=== PATIENT | female | born 2005 | race Two or more races ===

== ENCOUNTER 2025-02-09 09:57 | Emergency (ER) | payer SELFPAY ==
[2025-02-09 09:58] VITALS: BMI 21.4
[2025-02-09 10:03] VITALS: BP 155/86; PULSE 68; RESP 20; TEMP 36.6; O2SAT 100
--- NOTE | 2025-02-09 10:04 | XR_ITS ---
Examination: Abdomen sonogram, Limited Date and time of exam: February 09, 2025 1015 hrs. Indications: Epigastric pain nausea vomiting beginning 2 days ago. Technique: Real-time nina scale transabdominal sonographic images of the upper abdomen obtained. Findings: Normal gallbladder. Normal common bile duct 0.4 cm Pancreatic head 3.0 cm Liver 13.9 cm no focal liver lesions. Normal hepatopedal portal venous flow. Patent IVC. Impression: Normal study
--- NOTE | 2025-02-09 10:04 | EKG_ITS ---
[facility] Test Date: 2025-02-09 Pat Name: TERRI PHILLIPS Department: Room: - Gender: Female Casework Specialist: : 2005 Requested By: Drew Bautista (MADIE) Order Number: [id number] Reading MD: Drew Bautista (HOUSEFELLOW) Measurements Intervals [place] Rate: 65 P: 37 NC: 144 QRS: 64 QRSD: 85 T: 43 QT: 376 QTc: 391 Interpretive Statements SINUS RHYTHM NONSPECIFIC ST ELEVATION [0.05+ mV ST ELEVATION] No previous ECG available for comparison /store/S0/[id number]
[2025-02-09] MEDS: ONDANSETRON ODT 4 MG TABRAP PO (10:10)
[2025-02-09] MEDS: MG HYD/AL HYD/SIME (Maalox Reg) SUSP 30 ML UDC PO (10:11)
[2025-02-09] MEDS: FAMOTIDINE 20 MG TABLET PO (10:12)
[2025-02-09] MEDS: LIDOCAINE VISCOUS 2% 15 ML UDC PO (10:12)
[2025-02-09] MEDS: METOCLOPRAMIDE INJ 5 MG/ML VIAL 2 ML 10 MG IM (10:54)
[2025-02-09 11:16] LABS: Basophils # (Auto) 0.0 Thou/mm3 (0.0-0.2); Basophils % (Auto) 0 % (0-2.5); Eosinophils # (Auto) 0.1 Thou/mm3 (0.0-0.5); Eosinophils % (Auto) 1 % (0-10); Hematocrit 38.4 % (36.0-46.0); Hemoglobin 11.9 g/dL (12.0-16.0); Immature Granulocytes Auto 0.03 Thou/mm3 (0.00-0.00); Lymphocytes # (Auto) 1.5 Thou/mm3 (1.0-5.0); Lymphocytes % (Auto) 13 % (10-50); Mean Corpuscular HGB Conc 31.0 g/dl (31.0-37.0); Mean Corpuscular Hemoglobin 27.1 pg (25.0-35.0); Mean Corpuscular Volume 88 fL (80-100); Monocytes # (Auto) 0.6 Thou/mm3 (0.0-0.8); Monocytes % (Auto) 5 % (0-12); Neutrophils # (Auto) 9.6 Thou/mm3 (1.8-7.7); Neutrophils % (Auto) 81 % (37-80); Nucleated Red Blood Cell # 0.00 Thou/mm3 (0.00-0.00); Nucleated Red Blood Cell % 0 /100 WBC (0); Platelet Count 296 Thou/mm3 (140-440); RDW Standard Deviation 50.2 fL (36.4-46.3); Red Blood Count 4.39 Miln/mm3 (4.00-5.20); White Blood Count 11.9 Thou/mm3 (4.5-11.0)
[2025-02-09 11:51] LABS: Alanine Aminotransferase 8 U/L (10-49); Albumin, Serum 4.6 gm/dL (3.5-5.0); Albumin/Globulin Ratio 1.7 (1.2-2.2); Alkaline Phosphatase 69 U/L (46-116); Anion Gap 10 (7-16); Aspartate Amino Transferase 17 U/L (0-34); BUN/Creatinine Ratio 16 Ratio (12-20); Bilirubin,Total 0.3 mg/dL (0.3-1.2); Blood Urea Nitrogen 11 mg/dL (9-23); Calcium 9.2 mg/dL (8.3-10.6); Calcium (Corrected) 9.2 mg/dL (8.5-10.1); Carbon Dioxide 27.0 mMol/L (20.0-31.0); Chloride 104 mMol/L (98-107); Creatinine (Component) 0.7 mg/dL (0.6-1.3); Estimated Creatinine Clearance 111.6 mL/min (>60); Globulin 2.7 gm/dL (2.3-3.5); Glucose 119 mg/dL (74-106); Lipase 33 U/L (12-53); Osmolality,Calculated 281 (275-295); Potassium 4.4 mMol/L (3.4-5.1); Sodium 141 mMol/L (136-145); Total Protein 7.3 gm/dL (5.7-8.2); Troponin I < 0.002 ng/mL (0.0-0.045); eGFR > 60 See Note
[2025-02-09 12:12] LABS: Collection Type, Urine Clean Catch; WBC,Urine 0 /hpf (0-5)
[2025-02-09 12:40] LABS: Amorphous Crystals,Urine Present (Absent); Bilirubin,Urine Negative (Negative); Blood,Urine Negative (Negative); Color,Urine Yellow (Lt Yel-Yel); Culture Indicated,Urine Not Indicated; Glucose, Urine Negative (Negative); Ketones,Urine Negative (Negative); Leukocyte Esterase,Urine Negative (Negative); Nitrite,Urine Negative (Negative); PH,Urine 8.5 (5.0-7.0); Protein,Urine Trace (Neg - Trace); RBC,Urine 1 /hpf (0-3); Specific Gravity,Urine 1.021 (1.001-1.035); Squamous Epithelial Cell,Urine 1 /hpf (0-5); Urobilinogen,Urine Negative mg/dL (0.0-1.0)
[2025-02-09 12:45] LABS: HCG Qualitative,Urine Negative
[2025-02-09 12:46] LABS: Clarity,Urine Turbid (Clear/Hazy)
--- NOTE | 2025-02-09 13:15 | EDNOTE_ITS ---
ED Abdominal Pain RME/HPI General Chief Complaint: Abdominal Pain Stated complaint: EPIGASTRIC PAIN SINCE YESTERDAY, VOMITING TODAY Time seen by provider: 02/09/25 10:04 Arrival date/time: 02/09/25 09:57 19-year-old female with no significant medical problems presents emergency department today for complaint of epigastric pain nausea and vomiting patient for symptoms ongoing since yesterday. Patient reports no fever chest pain or shortness of breath Limitations: no limitations Related Data Previous Rx's ?Medication ?Instructions ?Recorded ibuprofen 600 mg tablet 600 mg PO Q6H #30 tabs 02/27 famotidine 20 mg tablet (Pepcid) 20 mg PO BID 30 days #60 tabs 02/09/25 ibuprofen 600 mg tablet 600 mg PO Q6H #30 tabs 02/09 omeprazole 20 mg capsule,delayed 20 mg PO QDAY 14 days #14 caps 02/09/25 release ondansetron 4 mg disintegrating 2 mg (1/2 x 4 mg) PO B ID PRN 02/09/25 tablet nausea and vomiting 3 days # 3 tabs Allergies Allergy/AdvReac Type Severity Reaction Status Date / Time No Known Allergies Allergy Verified 02/09/25 09:59 Review of Systems Review of Systems Systems Reviewed: All systems reviewed, normal except as documented Constitutional Constitutional: Reports system reviewed and no additional complaints, except as documented, Denies fever(s) and Denies headache(s) Eyes Eyes: Reports system reviewed and no additional complaints, except as documented and Denies blurry vision ENT Ears, Nose, Mouth, and Throat: Reports system reviewed and no additional complaints, except as documented, Denies headache(s), Denies nasal congestion and Denies nasal discharge Cardiovascular Cardiovascular: Reports system reviewed and no additional complaints, except as documented, Denies chest pain and Denies dyspnea Respiratory Respiratory: Reports system reviewed and no additional complaints, except as documented, Denies chest congestion, Denies cough and Denies dyspnea Gastrointestinal Gastrointestinal: Reports system reviewed and no additional complaints, except as documented, Reports abdominal pain, Denies loose stools, Denies nausea and Denies vomiting Integumentary/Breasts Skin/Breast: Reports system reviewed and no additional complaints, except as documented and Denies rash Neurologic Neurologic: Reports system reviewed and no additional complaints, except as documented, Reports as per HPI and Denies headache(s) Past Medical History Social History SMOKING STATUS: Never smoker ED Exam General Limitations: Present no limitations General appearance: Present alert and in no apparent distress Head Head exam: Present atraumatic Eye Eye exam: Present normal appearance, PERRL and EOMI ENT ENT exam: Present normal exam, normal oropharynx and mucous membranes moist Neck Neck exam: Present normal inspection, full ROM and trachea midline Chest Chest inspection: Present normal inspection and symmetric chest wall rise Respiratory Respiratory exam: Present normal lung sounds bilaterally Cardiovascular Cardiovascular exam: Present regular rate, normal rhythm and normal heart sounds Abdominal Exam Abdominal exam: Present soft, tenderness and normal bowel sounds; Absent distention, guarding, rebound, rigidity, Napoles's sign or tenderness at McBurney's Point Abdominal tenderness: Absent RUQ or RLQ Extremities Exam Extremities exam: Present normal inspection and full ROM Back Exam Back exam: Present normal inspection and full ROM Neurological Exam Neurological exam: Present alert, oriented X3 and CN II-XII intact Psychiatric Psychiatric exam: Present normal affect and normal mood Skin Skin exam: Present warm, dry, intact and normal color Course Quality Measures none Orders Category Date Time Status EKG (ED ONLY) *Do not use* NOW Care 02/09/25 10:04 Completed EKG (ED Only) Stat Exams 02/09/25 10:04 Draft US gall bladder Stat Exams 02/09/25 10:04 Completed CBC Stat Lab 02/09/25 11:01 Completed Comprehensive Metabolic Panel Stat Lab 02/09/25 11:01 Completed HCG Qualitative,Urine Stat Lab 02/09/25 12:00 Completed Lipase Stat Lab 02/09/25 11:01 Completed Troponin I Stat Lab 02/09/25 11:01 Completed UA, C/S IF [Urinalysis, C/S if Indicated] Stat Lab 02/09/25 12:00 Completed Famotidine [Pepcid] Med 02/09/25 10:04 Discontinued 20 mg PO X1 ONE Lidocaine 2% Viscous [Xylocaine 2% Viscous] Med 02/09/25 10:04 Discontinued 15 ml PO X1 ONE Metoclopramide Inj [Reglan Inj] Med 02/09/25 10:45 Discontinued 10 mg IM X1 ONE Ondansetron Odt [Zofran Odt] Med 02/09/25 10:04 Discontinued 4 mg PO X1 ONE mg Hyd/Al Hyd/Jama Susp [Maalox Susp] Med 02/09/25 10:04 Discontinued 30 ml PO X1 ONE Vital Signs Vital signs: Vital Signs Temperature 97.8 F 02/09/25 10:03 Pulse Rate 68 02/09/25 10:03 Respiratory Rate 20 02/09/25 10:03 Blood Pressure 155/86 H 02/09/25 10:03 Pulse Oximetry (%) 100 02/09/25 10:03 Oxygen Delivery Method Room Air 02/09/25 10:03 O2 saturation 100% on room air within the limits PROCEDURES: EKG Interpretation #1: Date of EK02/09/25 Time of EK:05 Rate: 65 Interpretation: Interpreted by me EKG Impression: Normal sinus rhythm, No acute ST-T changes, No ectopy, No ischemic changes, Normal QRS, Normal intervals and Normal axis Abdominal Pain MDM MDM Narrative MDM Narrative:: 19-year-old female with no significant medical problems presents emergency department today for complaint of epigastric pain nausea and vomiting patient for symptoms ongoing since yesterday. Patient reports no fever chest pain or shortness of breath On exam patient is mild tenderness in epigastrium Lab work and imaging obtained no emergent findings noted Patient medicated here which improved her symptoms Patient discharged home in no distress to follow-up with primary care doctor in the next 24 to 48 hours and for any worsening symptoms to return to the ER immediately Patient data External records reviewed:: [facility] previous records Clinical information provided by:: patient Social determinants that could affect healthcare access:: none Patient has the following chronic illnesses:: None How is presenting disease/condition affected by chronic disease/condition?: no chronic disease Evaluation data The following diagnostics were reviewed and interpreted by me:: lab results and radiology exam(s) Lab and/or radiology exams considered but not ordered:: Labs and radiology obtained Interpretation Summary: Reviewed by me Medications / Prescriptions Medications or Prescriptions considered but not ordered:: Given Medication administrations:: Medication Administration History Discontinued Medications Al Hydrox/Mg Hydrox/Simethicone (Mg Hyd/Al Hyd/Jama (Maalox Reg) Susp 30 Ml Udc) 30 ml PO X1 ONE Stop: 02/09/25 10:05 Last Admin: 02/09/25 10:11 Dose: 30 ml Documented By: OA Famotidine (Famotidine 20 Mg Tablet) 20 mg PO X1 ONE Stop: 02/09/25 10:05 Last Admin: 02/09/25 10:12 Dose: 20 mg Documented By: MERCY Lidocaine HCl (Lidocaine Viscous 2% 15 Ml Udc) 15 ml PO X1 ONE Stop: 02/09/25 10:05 Last Admin: 02/09/25 10:12 Dose: 15 ml Documented By: MERCY Metoclopramide HCl (Metoclopramide Inj 5 Mg/Ml Vial 2 Ml) 10 mg IM X1 ONE; Protocol Stop: 02/09/25 10:46 Last Admin: 02/09/25 10:54 Dose: 10 mg Documented By: MERCY Ondansetron HCl (Ondansetron Odt 4 Mg Tabrap) 4 mg PO X1 ONE; Protocol Stop: 02/09/25 10:05 Last Admin: 02/09/25 10:10 Dose: 4 mg Documented By: OA Given Consultations Consultation(s) initiated? (list below): No Diagnosis Differential diagnosis abdominal pain: abdominal pain, calculus of kidney, pancreatitis and small bowel obstruction Most likely diagnosis given after review of the tests above:: Abdominal pain Admission Indicated Admission indicated?: not indicated Admission Request Was there a request for admission?: No Disposition Plan Disposition Plan: Discharge Discharge Attestation Discharge Attestation: The patient and all family members were given an opportunity to ask questions and understood the discharge instructions. Discharge instructions specifically effects, indications for sooner follow up or return to the emergency department, and the expected course of current diagnosis. Patient condition: Stable Discharge Plan Plan Patient Disposition: HOME (Self Care) Discharge Disposition comment: Stable Prescriptions/Referrals Prescriptions/Med Rec: New famotidine [Pepcid] 20 mg tablet 20 mg PO BID 30 Days Qty: 60 0RF omeprazole 20 mg capsule,delayed release(DR/EC) 20 mg PO QDAY 14 Days Qty: 14 0RF ibuprofen 600 mg tablet 600 mg PO Q6H Qty: 30 0RF ondansetron 4 mg tablet,disintegrating 2 mg PO BID PRN (Reason: nausea and vomiting) 3 Days Qty: 3 0RF No Action ibuprofen 600 mg tablet 600 mg PO Q6H Qty: 30 0RF Referrals: No Primary/Family,Physician [Primary Care Provider] - 02/11/25 Problem List Clinical Impression: Acute epigastric pain, Nausea & vomiting Patient/Caregiver Discharge Instructions Education Materials: Medicine for Pain Additional Instructions: Please follow up with your primary care doctor in the next 24-48hrs for any worsening symptoms return here immediately Print Language: Danish Stand Alone Forms: Fiorella Award Info., Work/School Release, Patient Portal Info Letter PA/DIRECTOR OF HOUSING AND ENERGY SERVICES Supervising Physician PA/DIRECTOR OF HOUSING AND ENERGY SERVICES Supervising Physician: Dr. Munoz
--- NOTE | 2025-02-09 13:21 | PC.NURSE ---
called from lobby and no answer
--- NOTE | 2025-02-09 13:26 | PC.NURSE ---
called from lobby and no answer
--- NOTE | 2025-02-09 13:59 | PC.NURSE ---
CALLED FROM LOBBY AND NO ANSWER. PT NOT FOUND INSIDE THE E.D. OR OUTSIDE
== END 2025-02-09 14:00 | disposition home or self-care (01) ==
PROVIDERS: Nurse Practitioner Primary Care; Emergency Provider Emergency Medicine
DX: R10.13 Epigastric pain (principal); R11.2 Nausea with vomiting, unspecified; R94.31 Abnormal electrocardiogram [ECG] [EKG]
CPT/HCPCS: 36415; 76705; 80053; 81001; 81025; 83690; 84484; 85025; 93005; 96372; 99283; J2765; J3490; Q0162; A9270

== ENCOUNTER 2025-02-10 14:08 | Emergency (ER) | payer MEDICAID, SELFPAY ==
[2025-02-10 14:10] VITALS: BMI 20.5
[2025-02-10 14:37] VITALS: BP 143/102; PULSE 89; RESP 16; TEMP 36.8; O2SAT 99
--- NOTE | 2025-02-10 15:05 | EKG_ITS ---
[facility] Test Date: 2025-02-10 Pat Name: TERRI PHILLIPS Department: Room: - Gender: Female Environmental Services Assistant: : 2005 Requested By: Carina Sullivan Order Number: [id number] Reading MD: Carina Sullivan Measurements Intervals [place] Rate: 76 P: 40 NM: 133 QRS: 66 QRSD: 88 T: 22 QT: 355 QTc: 400 Interpretive Statements SINUS RHYTHM WITH SINUS ARRHYTHMIA NONSPECIFIC T-WAVE ABNORMALITY Compared to ECG 02/09/2025 10:05:31 T-wave abnormality now present ST (T wave) deviation no longer present /store/S0/[id number]/ecg/[id number].pdf
--- NOTE | 2025-02-10 15:05 | XR_ITS ---
Examination: PA lateral chest 2 views Technique: Upright PA lateral chest 2 views Date and time: February 10, 2025, 1550 hrs. Indications: Syncopal episode today. Findings: Normal heart size. Lungs are clear. The osseous structures are intact. Impression: No active disease.
--- NOTE | 2025-02-10 15:42 | PD.EDSYNC ---
ED Syncope RME/HPI General Chief Complaint: Syncope / Near Syncope Stated Complaint: BILAT UPPER ABD PAIN X3DAYS PASSED OUT IN SHOWER Time Seen by Provider: 02/10/25 14:43 Arrival date/time: 02/10/25 14:08 Limitations: no limitations RME / HPI RME / HPI narrative: DR. RICARDO SANTOS ED EVALUATION: 19-year-old female with no significant past medical history presents to the Emergency Department accompanied by her boyfriend with complaint of bilateral upper abdominal pain for the past 3 days, which has persisted; she was seen here yesterday for the abdominal pain and she left AMA so she did not get her US results. Today, the patient also reports a brief episode of feeling like she was going to pass out while in the shower. She denies fever, nausea, vomiting, diarrhea, leg swelling, chest pain, dysuria, or recent travel. She occasionally uses marijuana but denies tobacco, alcohol, or other drug use. No known allergies or daily medications. Last menstrual period was on 01/26. Denies . Related Data Previous Rx's ?Medication ?Instructions ?Recorded ibuprofen 600 mg tablet 600 mg PO Q6H #30 tabs 02/28/20 famotidine 20 mg tablet (Pepcid) 20 mg PO BID 30 days #60 tabs 02/09/25 ibuprofen 600 mg tablet 600 mg PO Q6H #30 tabs 02/09/25 omeprazole 20 mg capsule,delayed 20 mg PO QDAY 14 days #14 caps 02/09/25 release ondansetron 4 mg disintegrating 2 mg (1/2 x 4 mg) PO BID PRN 02/09/25 tablet nausea and vomiting 3 days #3 tabs Allergies Allergy/AdvReac Type Severity Reaction Status Date / Time No Known Allergies Allergy Verified 02/10/25 14:12 Review of Systems Review of Systems Systems Reviewed: All systems reviewed, normal except as documented Past Medical History Social History SMOKING STATUS: Never smoker SUBSTANCE USE: marijuana ALCOHOL: Never ED Exam General Limitations: Present no limitations General appearance: Present alert and in no apparent distress Head Head exam: Present atraumatic, normocephalic and normal inspection Eye Eye exam: Present normal appearance, PERRL and EOMI ENT ENT exam: Present normal exam, normal oropharynx and mucous membranes moist Neck Neck exam: Present normal inspection, full ROM and trachea midline Chest Chest inspection: Present normal inspection and symmetric chest wall rise Respiratory Respiratory exam: Present normal lung sounds bilaterally Cardiovascular Cardiovascular exam: Present regular rate, normal rhythm and normal heart sounds Abdominal Exam Abdominal exam: Present soft and normal bowel sounds Extremities Exam Extremities exam: Present normal inspection and full ROM; Absent pedal edema Back Exam Back exam: Present normal inspection and full ROM Neurological Exam Neurological exam: Present alert, oriented X3, CN II-XII intact and normal gait Psychiatric Psychiatric exam: Present normal affect and normal mood Skin Skin exam: Present warm, dry, intact and normal color Course Quality Measures none Orders Category Date Time Status Bedside COVID-19 Antigen Test NOW Care 02/10/25 15:06 Active Bedside Influenza A&B Antigen Test NOW Care 02/10/25 15:06 Active EKG (ED ONLY) *Do not use* NOW Care 02/10/25 15:05 Completed CXR2 [XR chest 2V] Stat Exams 02/10/25 15:05 Completed EKG (ED Only) Stat Exams 02/10/25 15:05 Draft CBC Stat Lab 02/10/25 15:29 Completed CK [Creatine Kinase] Stat Lab 02/10/25 15:29 Completed CMP [Comprehensive Metabolic Panel] Stat Lab 02/10/25 15:29 Completed HCG,Qualitative Serum Stat Lab 02/10/25 15:29 Completed Troponin I Stat Lab 02/10/25 15:29 Completed UA, C/S IF [Urinalysis, C/S if Indicated] Stat Lab 02/10/25 16:01 Completed Vital Signs Vital signs: Vital Signs Temperature 98.2 F 02/10/25 14:37 Pulse Rate 89 02/10/25 14:37 Respiratory Rate 16 02/10/25 14:37 Blood Pressure 143/102 H 02/10/25 14:37 Pulse Oximetry (%) 99 02/10/25 14:37 Oxygen Delivery Method Room Air 02/10/25 14:37 Syncope MDM Narrative MDM Narrative:: I, Yovana Saldana am scribing for and in the presence of Dr. Munoz. Patient data External records reviewed:: [facility] previous records Clinical information provided by:: patient Social determinants that could affect healthcare access:: substance use (She occasionally uses marijuana but denies tobacco, alcohol, or other drug use.) Patient has the following chronic illnesses:: Denies any PMHx, surgeries, daily medications, or known allergies. How is presenting disease/condition affected by chronic disease/condition?: no chronic disease Evaluation data The following diagnostics were reviewed and interpreted by me:: lab results and radiology exam(s) Lab and/or radiology exams considered but not ordered:: none Interpretation Summary: My interpretation: EKG performed at 1514 hours, sinus rhythm, rate 76, normal intervals, non specific ST-T wave changes, no cardiac alert Procedure(s): XR chest 2V Accession Number(s): [id number] cc: Ming Plunkett MD; Thanh Payan MD; Carina Munoz MD~ Examination: PA lateral chest 2 views Technique: Upright PA lateral chest 2 views Date and time: February 10, 2025, 1550 hrs. Indications: Syncopal episode today. Findings: Normal heart size. Lungs are clear. The osseous structures are intact. Impression: No active disease. Dictated By: Thanh Payan MD Date of Service: 02/09/25 Procedure(s): US gall bladder Accession Number(s): [id number] cc: Michele ([employer] MAINFRAME DEVELOPER),Drew [employer] MAINFRAME DEVELOPER; Thanh Payan MD; NO PRIMARY/FAMILY,PHYSICIAN~ Examination: Abdomen sonogram, Limited Date and time of exam: February 09, 2025 1015 hrs. Indications: Epigastric pain nausea vomiting beginning 2 days ago. Technique: Real-time nina scale transabdominal sonographic images of the upper abdomen obtained. Findings: Normal gallbladder. Normal common bile duct 0.4 cm Pancreatic head 3.0 cm Liver 13.9 cm no focal liver lesions. Normal hepatopedal portal venous flow. Patent IVC. Impression: Normal study Dictated By: Thanh Payan MD Medications / Prescriptions Medications or Prescriptions considered but not ordered:: none Medication administrations:: none Consultations Consultation(s) initiated? (list below): No Diagnosis Syncope Differential Diagnosis: other (gastritis, early complications, and anxiety or vasovagal syncope) Most likely diagnosis given after review of the tests above:: Acute epigastric pain Syncope Admission Indicated Admission indicated?: not indicated Admission Request Was there a request for admission?: No Disposition Plan Disposition Plan: Discharge Discharge Attestation Discharge Attestation: The patient and all family members were given an opportunity to ask questions and understood the discharge instructions. Discharge instructions specifically effects, indications for sooner follow up or return to the emergency department, and the expected course of current diagnosis. Patient condition: Stable Discharge Plan Plan Patient Disposition: HOME (Self Care) Prescriptions/Referrals Prescriptions/Med Rec: No Action ibuprofen 600 mg tablet 600 mg PO Q6H Qty: 30 0RF famotidine [Pepcid] 20 mg tablet 20 mg PO BID 30 Days Qty: 60 0RF omeprazole 20 mg capsule,delayed release(DR/EC) 20 mg PO QDAY 14 Days Qty: 14 0RF ibuprofen 600 mg tablet 600 mg PO Q6H Qty: 30 0RF ondansetron 4 mg tablet,disintegrating 2 mg PO BID PRN (Reason: nausea and vomiting) 3 Days Qty: 3 0RF Referrals: Ming Plunkett MD [Primary Care Provider] - In 1 week Problem List Clinical Impression: Acute epigastric pain, Syncope Patient/Caregiver Discharge Instructions Education Materials: Causes of Syncope Additional Instructions: Your labs today were normal, your EKG did not show any evidence of acute abnormalities. Chest x-ray was normal, your ultrasound from your prior visit also was normal. Please continue to hydrate well at home. If you have any recurrence of symptoms it is important that you be evaluated by your primary care doctor as well as a painter shipyard. If not you come back to the emergency department at any time Print Language: Mohawk Stand Alone Forms: Fiorella Award Info., Patient Portal Info Letter
[2025-02-10 15:45] LABS: Basophils # (Auto) 0.0 Thou/mm3 (0.0-0.2); Basophils % (Auto) 0 % (0-2.5); Eosinophils # (Auto) 0.0 Thou/mm3 (0.0-0.5); Eosinophils % (Auto) 0 % (0-10); Hematocrit 38.8 % (36.0-46.0); Hemoglobin 12.5 g/dL (12.0-16.0); Immature Granulocytes Auto 0.03 Thou/mm3 (0.00-0.00); Lymphocytes # (Auto) 1.0 Thou/mm3 (1.0-5.0); Lymphocytes % (Auto) 9 % (10-50); Mean Corpuscular HGB Conc 32.2 g/dl (31.0-37.0); Mean Corpuscular Hemoglobin 27.3 pg (25.0-35.0); Mean Corpuscular Volume 85 fL (80-100); Monocytes # (Auto) 0.4 Thou/mm3 (0.0-0.8); Monocytes % (Auto) 4 % (0-12); Neutrophils # (Auto) 9.5 Thou/mm3 (1.8-7.7); Neutrophils % (Auto) 87 % (37-80); Nucleated Red Blood Cell # 0.00 Thou/mm3 (0.00-0.00); Nucleated Red Blood Cell % 0 /100 WBC (0); Platelet Count 305 Thou/mm3 (140-440); RDW Standard Deviation 47.7 fL (36.4-46.3); Red Blood Count 4.58 Miln/mm3 (4.00-5.20); White Blood Count 10.9 Thou/mm3 (4.5-11.0)
[2025-02-10 15:48] LABS: HCG,Qualitative Serum Negative
[2025-02-10 16:08] LABS: Alanine Aminotransferase 9 U/L (10-49); Albumin, Serum 5.2 gm/dL (3.5-5.0); Albumin/Globulin Ratio 1.8 (1.2-2.2); Alkaline Phosphatase 63 U/L (46-116); Anion Gap 13 (7-16); Aspartate Amino Transferase 18 U/L (0-34); BUN/Creatinine Ratio 14 Ratio (12-20); Bilirubin,Total 0.7 mg/dL (0.3-1.2); Blood Urea Nitrogen 11 mg/dL (9-23); Calcium 10.0 mg/dL (8.3-10.6); Calcium (Corrected) 10.0 mg/dL (8.5-10.1); Carbon Dioxide 23.3 mMol/L (20.0-31.0); Chloride 103 mMol/L (98-107); Creatine Kinase 106 U/L (34-171); Creatinine (Component) 0.8 mg/dL (0.6-1.3); Estimated Creatinine Clearance 97.2 mL/min (>60); Globulin 2.9 gm/dL (2.3-3.5); Glucose 132 mg/dL (74-106); Osmolality,Calculated 278 (275-295); Potassium 3.9 mMol/L (3.4-5.1); Sodium 139 mMol/L (136-145); Total Protein 8.1 gm/dL (5.7-8.2); Troponin I < 0.002 ng/mL (0.0-0.045); eGFR > 60 See Note
[2025-02-10 16:17] LABS: Collection Type, Urine Clean Catch
[2025-02-10 16:46] LABS: Bacteria,Urine Rare; Bilirubin,Urine Negative (Negative); Blood,Urine Negative (Negative); Clarity,Urine Clear (Clear/Hazy); Color,Urine Yellow (Lt Yel-Yel); Culture Indicated,Urine Not Indicated; Glucose, Urine Trace (Negative); Ketones,Urine 1+ (Negative); Leukocyte Esterase,Urine Negative (Negative); Nitrite,Urine Negative (Negative); PH,Urine 7.5 (5.0-7.0); Protein,Urine 2+ (Neg - Trace); RBC,Urine 4 /hpf (0-3); Specific Gravity,Urine 1.043 (1.001-1.035); Squamous Epithelial Cell,Urine 2 /hpf (0-5); Urobilinogen,Urine Negative mg/dL (0.0-1.0); WBC,Urine 6 /hpf (0-5)
--- NOTE | 2025-02-10 17:13 | PC.NURSE ---
PT DISCHARGED BEFORE BEDSIDE COVID & FLU TEST PERFORMED.
== END 2025-02-10 17:14 | disposition home or self-care (01) ==
PROVIDERS: Emergency Provider Emergency Medicine; PCP Family Medicine
DX: R55 Syncope and collapse (principal); R10.13 Epigastric pain
CPT/HCPCS: 36415; 71046; 80053; 81001; 82550; 84484; 84703; 85025; 93005; 99283